=== PATIENT | female | born 1945 | race Caucasian/White ===

== ENCOUNTER 2022-06-08 12:15 | Emergency (ER) | payer MEDICARE ==
[2022-06-08 14:20] LABS: BASOPHIL 0.3 % (0-2); EOSINOPHIL 0 % (0-7); HCT 40.5 % (37.0-47.0); HGB 12.7 g/dl (12.5-16.0); LYMPHOCYTE 9.8 % (15-48); MCH 26.1 pg (25.0-31.0); MCHC 31.4 g/dL (32.0-36.0); MCV 83.3 fL (78.0-100.0); MONOCYTE 8.9 % (0-12); MPV 11.3 fL (6.0-9.5); NEUTROPHIL 80.4 % (41-80); NRBC 0; PLT 304 K/uL (150-400); RBC 4.86 M/uL (4.20-5.40); RDW 16.1 % (11.5-14.0); WBC 9.6 K/uL (4.0-10.5)
[2022-06-08 14:45] LABS: ALBUMIN 3.1 g/dL (3.4-5.0); BILIRUBIN - TOTAL 0.3 mg/dL (0.2-1.0); BUN/CREAT RATIO (CALC) 22.3 RATIO; CREATININE 0.94 mg/dL (0.51-0.95); GLOBULIN (CALCULATION) 4.4 g/dL; POTASSIUM 3.9 mmol/L (3.5-5.1); TOTAL PROTEIN 7.5 g/dL (6.4-8.2)
[2022-06-08] MEDS ORDERED: AMLODIPINE BESYL5 MG PO (21:54)
[2022-06-08] MEDS ORDERED: ATORVASTATIN CA20 MG PO (21:55)
[2022-06-08] MEDS ORDERED: SERTRALINE HCL25 MG PO (21:55)
[2022-06-08] MEDS ORDERED: NORCO 5/3251 EACH PO (21:56)
[2022-06-08] MEDS ORDERED: ALLOPURINOL 10100 MG PO (21:56)
[2022-06-08] MEDS ORDERED: HYDROXYCHLOROQ200 MG PO (21:57)
[2022-06-08] MEDS ORDERED: ATENOLOL50 MG PO (21:58)
[2022-06-08] MEDS ORDERED: DILTIAZEM ER240 MG PO (21:58)
[2022-06-08] MEDS ORDERED: PANTOPRAZOLE SO40 MG PO (21:59)
[2022-06-08] MEDS ORDERED: METFORMIN HCL500 M1 PO (21:59)
[2022-06-08] MEDS ORDERED: PREDNISONE 5MG T5 MG PO (22:00)
[2022-06-08] MEDS ORDERED: LEFLUNOMIDE20 MG PO (22:00)
[2022-06-08] MEDS ORDERED: LANTUS SOL100 UNIT/1 SC (22:02)
[2022-06-08] MEDS ORDERED: ONDANSETRON ODT8 MG PO (22:03)
[2022-06-08] MEDS ORDERED: LEVOFLOXACIN500 MG PO (22:03)
[2022-06-08] MEDS ORDERED: TRIAMTERENE-HC1 EAC3 PO (22:04)
== END 2022-06-08 22:52 | disposition other institution (70) ==
LOC: FER 12:15
PROVIDERS: Emergency Medicine
DX: I63.432 Cerebral infarction due to embolism of left posterior cerebral artery (principal); I10 Essential (primary) hypertension; E11.9 Type 2 diabetes mellitus without complications; Z88.0 Allergy status to penicillin; Z88.2 Allergy status to sulfonamides; Z79.84 Long term (current) use of oral hypoglycemic drugs; Z79.899 Other long term (current) drug therapy; Z20.822 Contact with and (suspected) exposure to COVID-19
CPT/HCPCS: 36415; 70450; 71045; 80053; 84484; 85025; 93005; J2405; J2550; J3490; U0002